=== PATIENT | female | born 1975 | race Hispanic/Latino ===

== ENCOUNTER 2025-01-26 09:22 | Outpatient (CLI) | payer BC, SELFPAY | END 2025-01-26 09:23 | disposition home or self-care (01) | LOC: SCSMRI 09:22 | PROVIDERS: ATTEND Nurse Practitioner Family | DX: M25.562 Pain in left knee (principal); M25.561 Pain in right knee; S83.241A Other tear of medial meniscus, current injury, right knee, initial encounter; S83.242A Other tear of medial meniscus, current injury, left knee, initial encounter; M24.19 Other articular cartilage disorders, other specified site; M25.462 Effusion, left knee; M25.461 Effusion, right knee ==